=== PATIENT | female | born 1965 | race Caucasian/White ===

== ENCOUNTER 2023-03-03 08:10 | Outpatient (CLI) | payer BC, SELFPAY | END 2023-03-03 08:11 | disposition home or self-care (01) | PROVIDERS: PCP Physician Assistant Medical; Visit Provider Physician Assistant Medical | DX: Z00.00 Encounter for general adult medical examination without abnormal findings (principal); E55.9 Vitamin D deficiency, unspecified; I10 Essential (primary) hypertension; D64.9 Anemia, unspecified; Z13.6 Encounter for screening for cardiovascular disorders; F41.9 Anxiety disorder, unspecified | CPT/HCPCS: 80053; 80061; 82306; 82607; 83540 ==

== ENCOUNTER 2023-05-24 08:16 | Outpatient (CLI) | payer BC, SELFPAY | END 2023-05-24 08:17 | disposition home or self-care (01) | PROVIDERS: PCP Physician Assistant Medical; Visit Provider Physician Assistant Medical | DX: E55.9 Vitamin D deficiency, unspecified (principal); I10 Essential (primary) hypertension; D64.9 Anemia, unspecified | CPT/HCPCS: 80053 ==

== ENCOUNTER 2023-07-30 14:14 | Outpatient (CLI) | payer BC, SELFPAY ==
--- NOTE | 2023-07-30 14:40 | CRLHL7_ITS ---
For Patients: As a result of the Century Cures Act, medical imaging exams and procedure reports are released immediately into your electronic medical record. You may view this report before your referring provider. If you have questions, please contact your health care provider. BILATERAL SCREENING MAMMOGRAM WITH COMPUTER-AIDED DETECTION TECHNIQUE: CC and MLO views were obtained. These mammographic images have been obtained using full-field digital technique. These mammographic images were interpreted with the benefit of computer-aided detection. COMPARISON FILM: 01/17/14. FINDINGS: There are scattered areas of fibroglandular density IMPRESSION: There is no radiographic evidence for malignancy. ASSESSMENT: BI-RADS Category 1: Negative RECOMMENDATION: Routine screening mammogram in 1 year. A lay language report of this examination will be provided to the patient. Chris Monteiro M.D. Diagnostic Radiologist [email or web address] Transcribed: 1:28 p.mCharo faulkner/Dictated by: Chris Monteiro MD @ 08/02/2023 12:26:00 PM (Electronically Signed)
--- NOTE | 2023-07-30 15:00 | CRLHL7_ITS ---
For Patients: As a result of the Century Cures Act, medical imaging exams and procedure reports are released immediately into your electronic medical record. You may view this report before your referring provider. If you have questions, please contact your health care provider. INDICATION: Lung cancer screening. History of smoking. High risk patient with greater than 40 pack-year smoking history. TECHNIQUE: Low-dose lung cancer screening non-contrast CT chest. Dose reduction techniques were used. COMPARISON: None. FINDINGS: NODULES: Calcified nodules within the right perihilar lung and right upper lobe representing sequela of granulomatous disease. 3.2 millimeter nodule left upper lobe, 3/48. Faint 3 millimeter nodule right lower lobe, series 3, image 97. Pleural based linear density posterior left upper lobe considered benign. LUNGS AND PLEURA: Biapical pleural parenchymal scarring right greater than left. Mild scarring within the right lower lobe. Emphysema. No pleural effusion or infiltrate. MEDIASTINUM: Incidental calcification within the left thyroid lobe. Aneurysm of the ascending aorta measuring 4.7 cm. Calcified right hilar lymph nodes representing sequela of granulomatous disease. No adenopathy. CORONARY ARTERY CALCIFICATION: Minimal. LIMITED UPPER ABDOMEN: Calcified splenic granulomas. The gallbladder is absent. Left extrarenal pelvis. Midline upper abdominal wall hernia containing fat measuring 2.5 cm. Postop changes to the stomach. MUSCULOSKELETAL: Normal. IMPRESSION: Sequela of granulomatous disease with multiple benign-appearing nodules within the right perihilar lung and right upper lobe. Small bilateral noncalcified nodules measuring 3.2 millimeters and 3 millimeters. Ascending aortic aneurysm measuring 4.7 cm. LUNG-RADS CATEGORY: 2: Benign. RADIOLOGIST RECOMMENDATION: Continue annual screening with low-dose CT chest in 12 months. Please note that all CT scans at this facility use dose modulation, iterative reconstruction, and/or weight-based dosing when appropriate to reduce radiation dose to as low as reasonably achievable. Dictated by Chris Monteiro MD @ 08/02/2023 10:47:08 AM (Electronically Signed)
== END 2023-07-30 14:15 | disposition home or self-care (01) ==
LOC: MAMMO 14:15
PROVIDERS: PCP Physician Assistant Medical; Visit Provider Physician Assistant Medical
DX: Z12.2 Encounter for screening for malignant neoplasm of respiratory organs (principal); Z12.31 Encounter for screening mammogram for malignant neoplasm of breast
CPT/HCPCS: 71271; 77067

== ENCOUNTER 2023-08-19 08:03 | Outpatient (CLI) | payer BC, SELFPAY | END 2023-08-19 08:04 | disposition home or self-care (01) | PROVIDERS: PCP Physician Assistant Medical; Visit Provider Physician Assistant Medical | DX: D72.819 Decreased white blood cell count, unspecified (principal); E55.9 Vitamin D deficiency, unspecified; E53.8 Deficiency of other specified B group vitamins; R17 Unspecified jaundice | CPT/HCPCS: 82306; 82607; 82746 ==

== ENCOUNTER 2023-11-22 11:09 | Outpatient (CLI) | payer BC, SELFPAY | END 2023-11-22 11:10 | disposition home or self-care (01) | LOC: LKVREF 11:10 | PROVIDERS: PCP Physician Assistant Medical; Visit Provider Physician Assistant Medical | DX: R17 Unspecified jaundice (principal) | CPT/HCPCS: 80053 ==

== ENCOUNTER 2024-02-18 13:24 | Outpatient (CLI) | payer BC, SELFPAY ==
--- NOTE | 2024-02-18 15:00 | US_ITS ---
Patient: MAGGY YOUNG Facility:?[facility] Patient ID:?[id number] Site Patient ID:?[id number]. Site :?1965 Study:?US-Abdomen ABD. COMPLETE-02/18/2024 4:20:31 PM Ordering Physician:?Carrie Johnson Final Report: INDICATION: Elevated bilirubin. Suspected fatty liver. Abdominal aortic aneurysm screening. Previous history of gastric bypass 2002. COMPARISON: None available. TECHNIQUE: Ultrasound examination of the abdomen was performed. FINDINGS: : The gallbladder is absent, consistent with cholecystectomy. There is no residual fluid in the gall bladder fossa. The common bile duct is mildly increased in caliber at 11 mm, consistent with post cholecystectomy status The liver shows no sign of mass, contour abnormality or ascites. The liver is seen to have heterogeneous echogenicity in the left lobe with increased echogenicity elsewhere in the liver, consistent with fatty infiltration of the liver. The liver is mildly enlarged, measuring 18.2 centimeters in length. There is antegrade flow in the main portal vein using color Doppler examination. The pancreatic head and body were examined and are normal in appearance. There is mild aneurysmal dilatation of the abdominal aorta, measuring 3.3 x 2.7 (AP x transverse) centimeters proximally. The mid and distal abdominal aorta are nondilated. Recommend follow-up screening examination of the abdominal aorta at [address] or ultrasound. The portions of the inferior vena cava that are seen are normal in appearance as well. There is a simple cyst in the left renal pelvis measuring 3.5 x 2.0 x 2.6 centimeters, probably a parapelvic cyst. There is a complex, septated, cortical cyst in the lower pole of the left kidney measuring 1.5 x 0.9 x 1.4 centimeters. These are unlikely to be of clinical concern. The kidneys are normal in size, the right measuring 11.0 cm and the left measuring 11.6 cm in length. There is diffusely increased renal cortical echogenicity, suggesting medical renal disease. The spleen is seen to have multiple echogenic foci scattered throughout it consistent with multiple calcified granulomata, of no clinical concern. IMPRESSION: 1. Fatty infiltration of the mildly enlarged liver. 2. Absence of the gallbladder consistent with cholecystectomy. Mild dilatation of the common bile duct at 11 millimeters consistent with post cholecystectomy status. 3. Mild aneurysmal dilatation of the proximal abdominal aorta at 3.3 centimeters. Recommend routine screening examination at 3 year intervals. 4. Increased renal cortical echogenicity suggesting medical renal disease. Dictated by Mars Lyman MD @ 02/20/2024 11:50:40 AM Signed by:?Mars Lyman MD @02/20/2024 11:50:40 AM (Electronic Signature)
== END 2024-02-18 13:25 | disposition home or self-care (01) ==
LOC: RAD 13:25
PROVIDERS: PCP Physician Assistant Medical; Visit Provider Physician Assistant Medical
DX: I71.21 Aneurysm of the ascending aorta, without rupture (principal); R17 Unspecified jaundice; I10 Essential (primary) hypertension; Z13.6 Encounter for screening for cardiovascular disorders; K76.0 Fatty (change of) liver, not elsewhere classified
CPT/HCPCS: 76700; 93306

== ENCOUNTER 2024-05-29 08:23 | Outpatient (CLI) | payer BC, SELFPAY | END 2024-05-29 08:24 | disposition home or self-care (01) | PROVIDERS: PCP Physician Assistant Medical; Visit Provider Physician Assistant Medical | DX: D72.819 Decreased white blood cell count, unspecified (principal); E53.8 Deficiency of other specified B group vitamins; E55.9 Vitamin D deficiency, unspecified; I10 Essential (primary) hypertension | CPT/HCPCS: 80061; 80076; 82306; 82607 ==

== ENCOUNTER 2024-08-04 12:46 | Outpatient (CLI) | payer BC, SELFPAY ==
--- OUTSIDE RECORDS SUMMARY | 2024-08-04 12:49 | XMS_ITS ---
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 Generated for Jennifer maldonado/Yomi/eTransmitting on:?08/04/2024 12:48 PM CDT
--- OUTSIDE RECORDS SUMMARY | 2024-08-04 12:49 | XMS_ITS ---
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 Name Role Phone Yg Garcia Primary Care Provider [phone] Ba Downey Unavailable Unavailable Inocencio Samuel Unavailable [phone] Allergies No Known Allergies REASON FOR VISIT Low back pain, bilateral hip pain Medications Medication SIG (Take, Route, Frequency, Duration) Notes Start Date End Date Status Methocarbamol 500 MG TAKE 1 TO 2 TABLETS BY MOUTH TWICE DAILY NEEDED FOR BACK PAIN Oral for 45 Days Active Gabapentin 300 MG Oral for 90 Days Active Vitamin D3 Active Vitamin B12 Active Metoprolol Tartrate 50 MG 1 tablet with food Orally Twice a day Active Escitalopram Oxalate 20 MG Oral for 90 Days Active amLODIPine Besylate 5 MG Oral for 90 Days Active Lisinopril-hydroCHLOROthia zide 20-12.5 MG Oral for 90 Days Not-Taki ng Atorvastatin Calcium 10 MG 1 tablet Oral ly Once a day Active Social History Tobacco Use: Social History Observation Description Date Details (start date - stop date) Never Smoker NA - NA Tobacco Use/Smoking: Question Answer Notes Are you a nonsmoker Alcohol Screen Question Answer Notes Did you have a drink contain ing alcohol in the past year? Yes How often did you have a dri nk containing alcohol in the past year? 2 to 4 times a month (2 points) How many drinks did you have on a typical day when you were drinking in the past year? 1 or 2 drinks (0 point) Points 2 Interpretation Negative Vital Signs Height 66.25 in 06/01/2024 Weight 190 lbs 06/01/2024 BMI 30.43 kg/m2 06/01/2024 Blood pressure systolic 124 mm Hg 06/01/20 24 Blood pressure diastolic 86 mm Hg 024 Procedures Procedure Date Ordered Date Performed Result Body Sit e Intervention: 06/01/2024 06/12/2024 sched 06/13 Encounters Encounter Location Date Provider Diagnosis [facility] [address] [place] [address] 06/01/2024 Inocencio Samuel Other chronic pain G89.29 and Sacroiliitis, not elsewhere classified M46.1 Assessments Encounter Date Diagnosis (ICD Code) Assessment Notes Treatment Notes Treatment Clinical Notes 06/01/2024 Other chronic pain (ICD-10 - G89.29) Dagmar returns to clinic today for a follow up evaluation regarding her chronic pain. I have reviewed the [facility] database and did not find any inconsistencies. We discussed her current symptoms and medications. In regards to her increased SI joint pain, following my exam, I have ordered a bilateral therapeutic SIJ injection. She reports difficulty bending, sitting, and getting out of a sherry. A L4-5 LESI was previously ordered but based on her clinical presentation and my exam today, we will plan to hold off from this. I have cancelled the L4-5 LESI today. This treatment plan was reviewed with Dagmar, and she was agreeable. I will continue to monitor her progress and she will follow up as needed. Plan:1. Order bilateral therapeutic SIJ injection2. Cancel L4-5 LESI3. Follow up as needed Discharge instructions reviewed verbally. The patient was instructed to call with any questions, problems or concerns. 06/01/2024 Sacroiliitis, not elsewhere classified (ICD-10 - M46.1) 06/01/2024 Other Shonna, Robbi Burrell , am serving as a scribe to document services personally performed by Inocencio Samuel PA-C, based upon my observations and the provider's statements to me. All documentation has been reviewed by the aforementioned JESUS as well as Dano Escobar MD, prior to being entered into the official medical record. I, Dano Escobar MD attest that the above named individual is acting in scribe capacity, has observed Inocencio Samuel's performance of the services and has documented them in accordance with her direction. The documentation recorded by the scribe accurately reflects the service Inocencio Samuel PA-C, personally performed and the decisions made by her. Plan Of Treatment Treatment Notes Assessment Notes Other chronic pain Dagmar returns to clinic today for a follow up evaluation regarding her chronic pain. I have reviewed the [facility] database and did not find any inconsistencies. We discussed her current symptoms and medications. In regards to her increased SI joint pain, following my exam, I have ordered a bilateral therapeutic SIJ injection. She reports difficulty bending, sitting, and getting out of a sherry. A L4-5 LESI was previously ordered but based on her clinical presentation and my exam today, we will plan to hold off from this. I have cancelled the L4-5 LESI today. This treatment plan was reviewed with Dagmar, and she was agreeable. I will continue to monitor her progress and she will follow up as needed. Plan:1. Order bilateral therapeutic SIJ injection2. Cancel L4-5 LESI3. Follow up as needed Discharge instructions reviewed verbally. The patient was instructed to call with any questions, problems or concerns. Other I, Robbi Burrell, am serving as a scribe to document services personally performed by Inocencio Samuel PA-C, based upon my observations and the provider's statements to me. All documentation has been reviewed by the aforementioned JESUS as well as Dano Escobar MD, prior to being entered into the official medical record. I, Dano Escobar MD attest that the above named individual is acting in scribe capacity, has observed Inocencio Samuel's performance of the services and has documented them in accordance with her direction. The documentation recorded by the scribe accurately reflects the service Inocencio Samuel PA-C, personally performed and the decisions made by her. Next Appt Details Follow Up: prn, Reason: Progress Notes * Dagmar KENT MDOB: [birth year] (59 yo F)Acc No.[id number]:06/01/2024 Progress Notes Patient:?Dagmar Kent Provider:?Inocencio Samuel PA-C :1965???Age:59 Y???Sex:Female D ate:06/01/2024 Phone: Address:[address] [place] [phone] Pcp:Yg B Spencer Subjective: * Chief Complaints: * ???Low back painBilateral hi p pain * HPI: ???Clinic visit:? Dagmar returns regarding her chronic low back and bilateral hip pain. ?Interval History: ?She reports increased pain in her left sided SI joint region today. She reports difficulty bending, getting up from the chair and sitting. ?Procedure History: She is not a surgical candidate per O ?- 04/18/2024 right L4-S1 RFA : 90% ongoing relief ?- 04/04/2024 left L4-S1 RFA : 30% ongoing relief ?- 07/26/2023 Left L5-S1 TFE ([facility]) 100% relief for 5-6 weeks ?- 05/31/2023 Right L5-S1 TFE ([facility]): 90% relief ?- 01/30/2022 Repeat L4-5 LESI ([facility]) ?Previous Therapy: She recently completed PT at [facility]. PT was completed at [facility] in 2019. She completes treatment at [facility] as needed. Regarding alernative therapy, she does have a TENS unit. ?Current Pain Medications: Gabapentin 300mg TID, Methocarbamol 500mg TID ?Previous Pain Medications: NSAIDs (history of ulcers). ???PQRS MEASURE:?154,155 Fall Risk?Have you had two or more falls in the past year??No,?Have you had any falls with injury in the past year??No,?Plan of Care:?Documented.?Depression Screening:?PHQ-9?Little interest or pleasure in doing things?Not at all,?Feeling down, depressed, or hopeless?Not at all,?Trouble falling or staying asleep, or sleeping too much?Not at all,?Feeling tired or having little energy?Not at all,?Poor appetite or overeating?Not at all,?Feeling bad about yourself or that you are a failure, or have let yourself or your family down?Not at all,?Trouble concentrating on things, such as reading the newspaper or watching television?Not at all,?Moving or speaking so slowly that other people could have noticed; or the opposite, being so fidgety or restless that you have been moving around a lot more than usual?Not at all,?Thoughts that you would be better off or of hurting yourself in some way?Not at all,?Total Score?0.?Intervention?Depression Screening Findings?Negative,?Name of the standardized tool used for adult depression screening:?Patient Health Questionnaire (PHQ-9).? * ROS:?General/Constitutional:?Chills/Fevers?No.?Fatigue?No.?Weight gain?No.?Weight loss?No.?Endocrine:?Dizziness?No.?Excessive sweating?No.?Weakness?No.?Respiratory:?Chest pain?No.?Cough?No.?Shortness of breath at rest?No.?Gastrointestinal:?Abdominal pain?No.?Blood in stool?No.?Constipation?No.?Diarrhea?No.?Hematology:?Easy bruising?No.?Prolonged bleeding?No.?Swollen glands?No.?Musculoskeletal:?Painful joints?No.?Swollen joints?No.?Skin:?Skin lesion(s)?No.?Neurologic:?Balance difficulty?No.?Headache?No.?Tingling/Numbness?No.?Psychiatric:?Alcoholism?No.?Anxiety?No.?Substance abuse?No.? * Medical History:? * Surgical History:?Gastric by pass 09/2003Lasik 2018 * Hospitalization/Major Diagno stic Procedure:?Denies Past Hospitalization * Family History:?Father: dece ased, diagnosed with Unspecified essential hypertension, Unspecified heart disease, Other malignant neoplasm of unspecified site.?Mother: , diagnosed with Other malignant neoplasm of unspecified site.?1 son(s) , 1 daughter(s) - healthy. .? * Social History:?Tobacco Use:?Tobacco Use/Smoking?Are you a?nonsmoker.?Marital status: . 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 ???Drugs/Alcohol:?Alcohol Screen?Did you have a drink containing alcohol in the past year??Yes,?How often did you have a drink containing alcohol in the past year??2 to 4 times a month (2 points),?How many drinks did you have on a typical day when you were drinking in the past year??1 or 2 drinks (0 point),?Points?2,?Interpretation?Negative.?Miscellaneous:?Marital status: . 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 * Medications:?TakingAtorvasta tin Calcium 10 MG Tablet 1 tablet Orally Once a dayMetoprolol Tartrate 50 MG Tablet 1 tablet with food Orally Twice a dayVitamin D3 Vitamin B12 Methocarbamol 500 MG Tablet TAKE 1 TO 2 TABLETS BY MOUTH TWICE DAILY NEEDED FOR BACK PAIN Oral Gabapentin 300 MG Capsule Oral Escitalopram Oxalate 20 MG Tablet Oral amLODIPine Besylate 5 MG Tablet Oral Taking Atorvastatin Calcium 10 MG Tablet 1 tablet Orally Once a dayTaking Metoprolol Tartrate 50 MG Tablet 1 tablet with food Orally Twice a dayTaking Vitamin D3 Taking Vitamin B12 Taking Methocarbamol 500 MG Tablet TAKE 1 TO 2 TABLETS BY MOUTH TWICE DAILY NEEDED FOR BACK PAIN Oral Taking Gabapentin 300 MG Capsule Oral Taking Escitalopram Oxalate 20 MG Tablet Oral Taking amLODIPine Besylate 5 MG Tablet Oral Not-Taking/PRNLisinopril-hydroCHLOROthiazide 20-12.5 MG Tablet Oral Not- Taking/PRN Lisinopril-hydroCHLOROthiazide 20-12.5 MG Tablet Oral * Allergies:?N.K.D.A.no[Allerg ies Verified] Objective: * Vitals:?Ht: 66.25 in, Wt:190 lbs, BMI:30.43, BP:124/86 mm Hg, VAS-Today:3 1-10, VAS-Av 1-10, VAS-High: 8 1-10. * Examination: ???Musculoskeletal: ?Constitutional:?obese body habitus, well groomed, in no acute distress.?Musculoskeletal:?normal gait and station, sits comfortably SI Joint Exam: positive ELI bilaterally, positive thigh thrusts bilaterally, positive Rolanda's finger test, bilateral SIJ TTP, positive pelvic compression test bilaterally.?Skin:?No rashes, scars, or lesions on visible skin.?Neurological?normal coordination upper extremities, normal coordination lower extremities, alert and oriented x3, normal mood and affect.? Assessment: * Assessment: 1.?Other chronic pain - G89. 29?2.?Sacroiliitis, not elsewhere classified - M46.1 (Primary)? Plan: * Treatment: 2.?Other chronic pain? Notes: Dagmar returns to clinic today for a follow up evaluation regarding her chronic pain. I have reviewed the [facility] database and did not find any inconsistencies. We discussed her current symptoms and medications. In regards to her increased SI joint pain, following my exam, I have ordered a bilateral therapeutic SIJ injection. She reports difficulty bending, sitting, and getting out of a sherry. A L4-5 LESI was previously ordered but based on her clinical presentation and my exam today, we will plan to hold off from this. I have cancelled the L4-5 LESI today. This treatment plan was reviewed with Dagmar, and she was agreeable. I will continue to monitor her progress and she will follow up as needed. Plan: 1. Order bilateral therapeutic SIJ injection 2. Cancel L4-5 LESI 3. Follow up as needed Discharge instructions reviewed verbally. The patient was instructed to call with any questions, problems or concerns.??3.?Others? Notes: I, Robbi Burrell, am serving as a scribe to document services personally performed by Inocencio Samuel PA-C, based upon my observations and the provider's statements to me. All documentation has been reviewed by the aforementioned JESUS as well as Dano Escobar MD, prior to being entered into the official medical record. I, Dano Escobar MD attest that the above named individual is acting in scribe capacity, has observed Inocencio Samuel's performance of the services and has documented them in accordance with her direction. The documentation recorded by the scribe accurately reflects the service Inocencio Samuel PA-C, personally performed and the decisions made by her.?? * Procedure Codes:? * Preventive Medicine:? ??iSpine Inventory Forms:?Low Back Oswestry?Oswestry Score (0-100)?44.4,?FÉLIX Interpretation?40-59 (Severe Disability).? ??Counseling:?BMI Care goal follow-up plan:?Above Normal BMI Follow-up?Lifestyle education regarding diet Patient declined.? * Follow Up:?prn * Billing Information: * Visit Code:? [id number] Established Patient level 4. * Procedure Codes:? * Sign off status: Completed true * Provider:?Inocencio Samuel PA-C Date:?2023 Generated for Jennifer maldonado/Yomi/eTransmitting on:?08/04/2024 12:49 PM CDT History and Physical Notes * HPI (History of Present Illness) Category Sub-Category Detail Notes Depression Screening PHQ-9 Little inte rest or pleasure in doing things: Not at all Feeling down, depressed, or hopeless: No t at all Trouble falling or staying asleep, or sl eeping too much: Not at all Feeling tired or having little energy: N ot at all Poor appetite or overeating: Not at all Feeling bad about yourself o r that you are a failure, or have let yourself or your family down: Not at all Trouble concentrating on thi ngs, such as reading the newspaper or watching television: Not at all Moving or speaking so slowly that other people could have noticed; or the opposite, being so fidgety or restless that you have been moving around a lot more than usual: Not at all Thoughts that you would be b sarbjit off or of hurting yourself in some way: Not at all Total Score: 0 Intervention Depression Screening Findings: N egative Name of the standardized too l used for adult depression screening:: Patient Health Questionnaire (PHQ-9) PQRS MEASURE 154,155 Fall Risk Have you had t wo or more falls in the past year?: No Have you had any falls with injury in e past year?: No Plan of Care:: Documented Examination Category Sub-Category Detail Notes Musculoskeletal Constitutional: obese body habit us, well groomed, in no acute distress Musculoskeletal: normal gait and stat ion, sits comfortablySI Joint Exam: positive ELI bilaterally, positive thigh thrusts bilaterally, positive Rolanda's finger test, bilateral SIJ TTP, positive pelvic compression test bilaterally Skin: No rashes, scars, or lesions on visible skin Neurological normal coordination upper extremities, normal coordination lower extremities, alert and oriented x3, normal mood and affect
--- OUTSIDE RECORDS SUMMARY | 2024-08-04 12:49 | XMS_ITS | Patient Health Record ---
Author Organization [facility] Address [address] [facility] [address] [place] [address] Care Team Providers Care Foundation Assistant Name Role Phone Yg Garcia Primary Care Provider [phone] Ba Downey Unavailable Unavailable Mayco Smith Unavailable [phone] Inocencio Samuel Unavailable [phone] Allergies No Known Allergies Reason For Referral Reason Left and Right L4-S1 RFAs Diagnosis 1 Spondylosis without myelopathy or radiculopathy, lumbosacral region (M47.817) Referral Organization [facility] Referring Provider First Name Yg Referring Provider Last Name Jose Referring Provider Speciality Pain Medic ine Referred Organization [facility] Referred Provider Yg Garcia Referred Address [address] [place] [address] [address],[place], [place],[address], Referred Provider Specialty Pain Medicin e Referral Priority Routine Medications Medication SIG (Take, Route, Frequency, Duration) Notes Start Date End Date Status Escitalopram Oxalate 20 MG Oral for 90 Days Active amLODIPine Besylate 5 MG Oral for 90 Days Active Methocarbamol 500 MG TAKE 1 TO 2 TABLETS BY MOUTH TWICE DAILY NEEDED FOR BACK PAIN Oral for 45 Days Active Gabapentin 300 MG Oral for 90 Days Active Lisinopril-hydroCHLOROthia zide 20-12.5 MG Oral for 90 Days Not-Taki ng Vitamin D3 Active Vitamin B12 Active Atorvastatin Calcium 10 MG 1 tablet Oral ly Once a day Active Metoprolol Tartrate 50 MG 1 tablet with food Orally Twice a day Active Social History Tobacco Use: [...] drinks (0 point) Points 2 Interpretation Negative Problems Problem Type SNOMED Code ICD Code Onset Dates Problem Status W/U Status Risk Notes Problem Chronic pain (79695893) Other chronic pain (G89.29) Active confirmed Problem Solitary sacroiliitis (257874444) Sacroiliitis, not elsewhere classified (M46.1) Active confirmed Problem Lumbosacral spondylosis without myelopathy (73386526) Spondylosis without myelopathy or radiculopathy, lumbosacral region (M47.817) Active confirmed Problem Lumbar spondylosis (482664684) Lumbar spondylosis (M47.816) Active confirmed Vital Signs Blood pressure diastolic 86 mm Hg 06/01/2024 Height 66.25 in 06/01/2024 Blood pressure systolic 124 mm Hg 06/01/2024 Weight 190 lbs 06/01/2024 BMI 30.43 kg/m2 06/01/2024 Procedures Procedure Date Ordered Date Performed Result Body Sit e Intervention: 03/01/2024 03/17/2024 sched left 04/04 and R ight 04/18 Intervention: 05/03/2024 06/01/202405/29 sent letter Intervention: 06/01/2024 06/12/2024 sched 06/13 Intervention: 02/17/2024 02/22/2024 Sched 02/28 Intervention: 02/08/2024 02/14/2024 Sched 02/14 Encounters Encounter Location Date Provider Diagnosis [facility] [address] [place] [phone] 11/24/2023 Yg Garcia [facility] [address] [place] [address] 02/14/2024 Yg Garcia [facility] [address] [place] [address] 02/24/2024 Yg Garcia [facility] [address] [place] [address] 03/31/2024 Yg Sueroe [facility] [address] [facility] [place] [address] 04/17/2024 Yg Sueroe [facility] [address] [place] [address] 06/14/2024 Yg Sueroe [address] [facility] [address] [place] [address] 11/28/2023 Mayco Bolick [address] [facility] [address] [place] [address] 06/13/2024 Yg Silverhill Sacroiliitis, not elsewhere classified M46.1 [address] [facility] [address] [place] [address] 02/15/2024 Yg [place]hill Spondylosis without myelopathy or radiculopathy, lumbosacral region M47.817 [address] [facility] [address] [place] [address] 02/29/2024 Yg Silverhill Spondylosis without myelopathy or radiculopathy, lumbosacral region M47.817 [address] [facility] [address] [place] [address] 04/04/2024 Yg [place]hill Spondylosis without myelopathy or radiculopathy, lumbosacral region M47.817 [address] [facility] [address] [place] [address] 04/18/2024 Yg [place] Spondylosis without myelopathy or radiculopathy, lumbosacral region M47.817 [address] [facility] [address] [place] [address] 02/08/2024 Mayco Bolick Other chronic pain G89.29 and Spondylosis without myelopathy or radiculopathy, lumbosacral region M47.817 [address] [facility] [address] [place] [address] 05/03/2024 Mayco Bolick Other chronic pain G89.29 and Lumbar spondylosis M47.816 [address] [facility] [address] [place] [address] 06/01/2024 Inocencio Samuel Other chronic pain G89.29 and Sacroiliitis, not elsewhere classified M46.1 Assessments Encounter Date Diagnosis (ICD Code) Assessment Notes Treatment Notes Treatment Clinical Notes 02/08/2024 Other chronic pain (ICD-10 - G89.29) Dagmar returns to clinic today for a follow up evaluation regarding her chronic low back and bilateral hip pain. We discussed her current symptoms and medications. I reviewed the results of her most recent imaging in clinic today. Based on her imaging, I ordered a bilateral L4-S1 MBBs as part of the RFA workup for management of her painful symptoms. Pending her relief, I will consider a referral to [facility] for physical therapy. This plan was reviewed with Dagmar and she was agreeable. I will continue to monitor her symptoms and she will follow up as needed. Plan:1. Reviewed imaging2. Order bilateral L4-S1 MBBs3. Consider referral to physical therapy4. Follow up as needed Discharge instructions reviewed verbally. The patient was instructed to return to the office as needed and call with any questions, problems or concerns. 04/30/2023 Lumbar MRI CONCLUSION: 1. Disc degeneration at each level from L5-S1 through L1-2 with high signal intensity dorsal annular fissuring at L5-S1 and L4-5. 2. Moderate bilateral facet arthropathy at L4-5 and L3-4. 3. No disc herniation, no significant stenosis and no neural impingement. 4. Comparison with 09/19/2021 shows no significant interval change. 02/08/2024 Spondylosis without myelopathy or radiculopathy, lumbosacral region (ICD-10 - M47.817) 02/15/2024 Spondylosis without myelopathy or radiculopathy, lumbosacral region (ICD-10 - M47.817) 02/29/2024 Spondylosis without myelopathy or radiculopathy, lumbosacral region (ICD-10 - M47.817) 04/04/2024 Spondylosis without myelopathy or radiculopathy, lumbosacral region (ICD-10 - M47.817) 04/18/2024 Spondylosis without myelopathy or radiculopathy, lumbosacral region (ICD-10 - M47.817) 05/03/2024 Other chronic pain (ICD-10 - G89.29) Dagmar returns to clinic today for a follow up evaluation regarding her chronic pain. I have reviewed the [facility] database and did not find any inconsistencies. We discussed her current symptoms and medications. At this time, I recommend physical therapy through [facility] though she wishes to proceed with an injection instead. I believe she is a good candidate for a L4-5 LESI. This treatment plan was reviewed with Dagmar, and she was agreeable. I will continue to monitor her progress and she will follow up as needed. Plan:1. Advised therapy through [facility], patient declined2. Reviewed lumbar MRI3. Order L4-5 LESI3. Follow up as needed Discharge instructions reviewed verbally. The patient was instructed to call with any questions, problems or concerns. 05/03/2024 Lumbar spondylosis (ICD-10 - M47.816) 06/01/2024 Other chronic pain (ICD-10 - G89.29) Dagmar returns to clinic today for a follow up evaluation regarding her chronic pain. I have reviewed the [facility] database and did not find any [...] Sacroiliitis, not elsewhere classified (ICD-10 - M46.1) 06/13/2024 Sacroiliitis, not elsewhere classified (ICD-10 - M46.1) 02/08/2024 Other Ida Kilpatrick, am serving as a scribe to document services personally performed by Mayco Smith PA-C, based upon my observations and the provider's statements to me. All documentation has been reviewed by the aforementioned PA-C as well as Yg Garcia MD, prior to being entered into the official medical record. I, Yg Garcia MD attest that the above named individual is acting in scribe capacity, has observed Mayco Smith's performance of the services and has documented them in accordance with her direction. The documentation recorded by the scribe accurately reflects the service Mayco Smith PA-C personally performed and the decisions made by her. 05/03/2024 Other I, Jace Barrett , am serving as a scribe to document services personally performed by Mayco Smith PA-C, based upon my observations and the provider's statements to me. All documentation has been reviewed by the aforementioned PAPo. I, Mayco Smith PA-C, attest that the above named individual is acting in scribe capacity, has observed my performance of the services and has documented them in accordance with my direction. The documentation recorded by the scribe accurately reflects the service I personally performed and the decisions made during the clinic visit. 06/01/2024 Other I, Robbi Burrell , am serving as a scribe to document services personally performed by Inocencio Samuel PA-C, based upon my observations and the provider's statements to me. All documentation has been reviewed by the aforementioned PATaylerC as well as Dano Escobar MD, prior [...] decisions made by her. Plan Of Treatment No Information Insurance Providers Payer Name Payer Address Payer Phone Subscriber Number Group Number Insured Name Patient Relationship to Insured Coverage Start Date Coverage End Date [facility] [address] [address] [place] [phone] [id number] Crispin Kent Spouse - patient is the spouse of the insured Medical (General) History Medical History History ICD Code Depression Ascending aortic aneurysm Anxiety Anemia Hypertension Migraines Headaches Ulcers Surgical History Surgery Date(Month/Year) Lasik 2018 Gastric bypass 09/2003
--- OUTSIDE RECORDS SUMMARY | 2024-08-04 12:49 | XMS_ITS ---
Author Organization [facility] Address [address] [place] [address] [address] [place] [address] Care Team Providers Care Commodity Analyst Name Role Phone Yg Garcia Primary Care Provider Ba Downey Unavailable Unavailable REASON FOR VISIT * Local * Bilateral Therapeutic SIJ Injections Encounters Encounter Location Date Provider Diagnosis [address] [facility] [address] [facility] [address] [place] [address] 06/13/2024 Yg Garcia Sacroiliitis, not elsewhere classified M46.1 Assessments Encounter Date Diagnosis (ICD Code) Assessment Notes Treatment Notes Treatment Clinical Notes 06/13/2024 Sacroiliitis, not elsewhere classified (ICD-10 - M46.1) Plan Of Treatment No Information Progress Notes * Dagmar KENT MDOB: [birth year] (59 yo F)Acc No.[id number]:06/13/2024 Patient:?Dagmar Kent Provider:?Yg Garcia M.D. :1965???Age:59 Y???Sex:Female D ate:06/13/2024 Phone: Address:[address] [place] [id number] * Billing Information: * Visit Code:? * Procedure Codes:? 95200 Injection for SIJ arthrography. Modifiers: 50 A4930 Gloves Sterile Per Pair. Units: 2.00. A4209 5 cc - 19 cc gauge syringe. A4215 [place] only Sterile any size each. Units: 2.00. A4550 Spinal Support Tray. S0020 Bupivicaine 0.5% mg/ml. Units: 4.00. J1030 Depo-Medrol 40mg/ml. Units: 2.00. Q9967 Omnipaque 300 mgl/mL. Units: 3.00. * Sign off status: Completed true * Provider:?Yg Garcia M.D. Date:?0 06/13/2024 Generated for Jennifer maldonado/Yomi/eTransmitting on:?08/04/2024 12:48 PM CDT
--- OUTSIDE RECORDS SUMMARY | 2024-08-04 12:50 | XMS_ITS | Clinical Summary ---
Author Organization [facility] Address [place], [place] [address] Care Team Providers Care Automobile Mechanic Radiator Name Role Phone Carrie Johnson PA-C Primary Care Provider Allergies No known active allergies Medications Medication Sig Dispensed Refills Start Date End Date Status iron-vitamin C (VITRON-C) 65 mg iron- 125 mg Delayed-Release tablet Take 1 Tab by mouth once daily. 0 07/30/2016 Active amLODIPine (NORVASC) 5 mg tablet Take 5 mg by mouth once daily. 01/08/2024 Active gabapentin (NEURONTIN) 300 mg capsule Take 300 mg by mouth once daily. 03/08/2024 Active methocarbamoL (ROBAXIN) 500 mg tablet Take 500 mg by mouth one time if needed. 02/03/2024 Active cholecalciferol, vitamin D3, (D-3-5 ORAL) Take 125 mcg by mouth once daily. Active mecobalamin, vitamin B12, (B12 Active) 1,000 mcg chew Chew 1,000 mcg by mouth once daily. Active escitalopram oxalate (LEXAPRO) 20 mg tablet Take 20 mg by mouth once daily in the morning. 01/16/2024 Active lisinopril-hydrochlor othiazide (10-12.5 mg) tablet (PRINZIDE; ZESTORETIC) Take 1 Tablet by mouth once daily. 05/24/2023 Active metoprolol succinate (Toprol XL) 25 mg Sustained-Release tabletIndications:Ane urysm of ascending aorta without rupture (HC) Take 1 Tablet (25 mg) by mouth once daily. 90 Tablet 3 03/29/2024 Active atorvastatin (LIPITOR) 20 mg tabletIndications:Manny tammy history of coronary artery disease Take 1 Tablet (20 mg) by mouth once daily with evening meal. 90 Tablet 3 04/26/2024 Active Active Problems No known active problems Social History Tobacco Use Types Packs/Day Years Used Date Smoking Tobacco: Former Cigarettes Tobacco Cessation:Counseling Given: Not Answered Comments:Ready to quit, insurance will not cover Alcohol Use Standard Drinks/Week Comments Yes 0 (1 standard drink = 0.6 oz pur e alcohol) weekends, 1-3 drinks Social Connections Answer Date Recorded Frequency of Communication with Friends and Fami ly Not on file 03/29/2024 Sex and Gender Information Value Date Recorded Sex Assigned at Not on file Gender Identity Not on file Sexual Orientation Not on file Obstetrics History Last Filed Vital Signs Vital Sign Reading Time Taken Comments Blood Pressure 112/80 03/29/2024 4:17 PM CDT Pulse 71 03/29/2024 4:17 PM CDT Temperature - - Respiratory Rate - - Oxygen Saturation 98% 03/29/2024 4:17 PM CDT Inhaled Oxygen Concentration - - Weight 97.5 kg (215 lb) 03/29/2024 4:17 PM CDT Height 170.2 cm (5' 7) 03/29/2024 4:17 PM CDT Body Mass Index 33.67 03/29/2024 4:17 PM CDT Plan of Treatment Health Maintenance Due Date Last Done Comments Tdap 1977 Depression screening for age 12+ 1978 HIV for age 15-65 1981 Hepatitis C screening for ag e 18-79 02/21/1984 Tetanus booster 1986 Pap test for age 21-65 1987 Colonoscopy through age 75 2011 Lipids for age 45-75 2011 Mammogram for age 45-75 2011 Zoster (shingles) series for age 50+ (1 of 2) 02/21/2016 COVID-19 vaccine series ( - 2022- season) 2024 Influenza for age 50-64 07/16/2024 BMI (ht and wt on same day) for age 18+ 03/29/2025 03/29/2024, 07/30/2016, 07/30/2016 Pneumococcal series for age 6-64 Aged Out No longer eligible b ased on patient's age to complete this topic Care Teams Automobile Mechanic Radiator Relationship Specialty Start Date End Date Carrie Johnson PA-C [address] [place] [address] PCP - General Emergency Medicine 03/29/24
--- NOTE | 2024-08-04 13:00 | CRLHL7_ITS ---
For Patients: As a result of the Century Cures Act, medical imaging exams and procedure reports are released immediately into your electronic medical record. You may view this report before your referring provider. If you have questions, please contact your health care provider. INDICATION: Lung cancer screening. TECHNIQUE: Noncontrast CT images of the chest. COMPARISON: None. FINDINGS: Calcified granulomas in the right upper lobe. Solid 3 mm nodule right upper lobe (series 3 image 77). Solid 3 mm nodule in the right lower lobe (series 3 image 92). Solid 3 mm nodule left upper lobe (series 3 image 52). No focal consolidation, pleural effusion, or pneumothorax. Mild scarring/atelectasis in the lingula. The heart size is normal. No pericardial effusion. Aneurysmal dilatation of the ascending thoracic aorta measuring 4.6 cm. Coronary artery atherosclerotic calcifications. No mediastinal or hilar lymphadenopathy. Calcified right hilar lymph nodes. Postsurgical changes of gastric bypass. Splenic granulomas. Cholecystectomy. Small fat containing ventral abdominal wall hernia. Multilevel thoracic spondylosis. No aggressive osseous lesions. IMPRESSION: 1. Small pulmonary nodules. Lung rads category 2, benign. Continue annual screening with low-dose chest CT in 12 months. 2. Aneurysmal dilatation of the ascending thoracic aorta. Please note that all CT scans at this facility use dose modulation, iterative reconstruction, and/or weight-based dosing when appropriate to reduce radiation dose to as low as reasonably achievable. Dictated by Lalit Ray MD @ 08/05/2024 8:21:38 PM (Electronically Signed)
== END 2024-08-04 12:47 | disposition home or self-care (01) ==
LOC: CT 12:47
PROVIDERS: PCP Physician Assistant Medical; Visit Provider Physician Assistant Medical
DX: Z12.2 Encounter for screening for malignant neoplasm of respiratory organs (principal); R91.8 Other nonspecific abnormal finding of lung field; I71.21 Aneurysm of the ascending aorta, without rupture; Z87.891 Personal history of nicotine dependence
CPT/HCPCS: 71271

== ENCOUNTER 2024-10-23 16:00 | Outpatient (CLI) | payer BC, SELFPAY ==
--- OUTSIDE RECORDS SUMMARY | 2024-10-23 16:04 | XMS_ITS | Clinical Summary ---
Author Organization [facility] Address [place], [place] [address] Care Team Providers Care Occupational Physician Name Role Phone Carrie Johnson PA-C Primary Care Provider Allergies No known active allergies Medications iron-vitamin C (VITRON-C) 65 mg iron- 125 [...] mouth one time if needed. 02/03/2024 Active cholecalciferol , vitamin D3, (D-3-5 ORAL) Take 125 mcg by mouth once daily. Active mecobalamin, vitamin B12, (B12 Active) 1,000 mcg chew Chew 1,000 mcg by mouth once daily. Active escitalopram oxalate (LEXAPRO) 20 mg tablet Take 20 mg by mouth once daily in the morning. 01/16/2024 Active lisinopril-hydr ochlorothiazide (10-12.5 mg) tablet (PRINZIDE; ZESTORETIC) Take 1 Tablet by mouth once daily. 05/24/2023 Active metoprolol succinate (Toprol XL) 25 mg Sustained-Relea se tabletIndicatio ns:Aneurysm of ascending aorta without rupture (HC) Take 1 Tablet (25 mg) by mouth once daily. 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
== END 2024-10-23 16:01 | disposition home or self-care (01) ==
PROVIDERS: PCP Physician Assistant Medical; Visit Provider Physician Assistant Medical
DX: I10 Essential (primary) hypertension (principal); Z13.29 Encounter for screening for other suspected endocrine disorder
CPT/HCPCS: 80053; 84443

== ENCOUNTER 2025-04-30 14:33 | Outpatient (CLI) | payer BC, SELFPAY | END 2025-04-30 14:34 | disposition home or self-care (01) | PROVIDERS: PCP Physician Assistant Medical; Visit Provider Physician Assistant Medical | DX: Z01.818 Encounter for other preprocedural examination (principal); E83.52 Hypercalcemia | CPT/HCPCS: 82310; 87081 ==

== ENCOUNTER 2025-07-27 09:38 | Outpatient (CLI) | payer BC, SELFPAY | END 2025-07-27 09:39 | disposition home or self-care (01) | PROVIDERS: PCP Physician Assistant Medical; Visit Provider Physician Assistant Medical | DX: L65.9 Nonscarring hair loss, unspecified (principal); E55.9 Vitamin D deficiency, unspecified; E78.5 Hyperlipidemia, unspecified; E53.8 Deficiency of other specified B group vitamins; I10 Essential (primary) hypertension; Z01.818 Encounter for other preprocedural examination | CPT/HCPCS: 82306; 82607; 82728 ==

== ENCOUNTER 2025-09-07 10:34 | Outpatient (CLI) | payer BC, SELFPAY ==
--- NOTE | 2025-09-07 11:00 | CRLHL7_ITS ---
For Patients: As a result of the Century Cures Act, medical imaging exams and procedure reports are released immediately into your electronic medical record. You may view this report before your referring provider. If you have questions, please contact your health care provider. INDICATION: Lung cancer screening. History of smoking. High risk patient with greater than 40 pack-year smoking history. TECHNIQUE: Low-dose lung cancer screening non-contrast CT chest. Dose reduction techniques were used. COMPARISON: 08/04/2024 FINDINGS: NODULES: Multiple calcified granulomas in the posterior segment of the right upper lobe are unchanged. Stable tiny nodules bilaterally including a 3 millimeter nodule in the left upper lobe. LUNGS AND PLEURA: Biapical pleural-parenchymal scarring. MEDIASTINUM: Stable calcified nodule within the left thyroid lobe. Chronic calcified right hilar lymph nodes. Stable ascending aorta. CORONARY ARTERY CALCIFICATION: Mild. LIMITED UPPER ABDOMEN: Postop changes of gastric reduction and cholecystectomy. Multiple calcified splenic granulomas. MUSCULOSKELETAL: Normal. IMPRESSION: Negative for lung cancer screening purposes. LUNG-RADS CATEGORY: 2: Benign. RADIOLOGIST RECOMMENDATION: Continue annual screening, if eligible, with low-dose CT chest in 12 months. Please note that all CT scans at this facility use dose modulation, iterative reconstruction, and/or weight-based dosing when appropriate to reduce radiation dose to as low as reasonably achievable. Dictated by Chris Monteiro MD @ 09/07/2025 11:28:49 AM (Electronically Signed)
== END 2025-09-07 10:35 | disposition home or self-care (01) ==
LOC: CT 10:34
PROVIDERS: PCP Physician Assistant Medical; Visit Provider Physician Assistant Medical
DX: Z12.2 Encounter for screening for malignant neoplasm of respiratory organs (principal); R91.1 Solitary pulmonary nodule; L65.9 Nonscarring hair loss, unspecified; Z87.891 Personal history of nicotine dependence; Z01.818 Encounter for other preprocedural examination
CPT/HCPCS: 71271